=== PATIENT | male | born 1970 | race Caucasian/White ===

== ENCOUNTER 2018-07-26 23:55 | Emergency (ER) | payer OTHER ==
[~2018-07-26] VITALS: Ht 175.3 cm; Wt 83.9 kg
[2018-07-27] MEDS ORDERED: FLUOXETINE HCL 40 MG (00:03)
--- NOTE | 2018-07-27 00:08 | NUR ---
Patient ambulated with stable gait. AAOX4. Speech is clear, speaks in complete sentences. No neuro deficits noted at this time. Patient came in for c/o dizziness s/p hitting head at the bottom of pool at around 1600 yesterday. Patient was asymptomatic until 1999 where he started feeling nauseous, and dizziness. Denies any vomiting. Denies any pain. Patient stated that now the nausea has subsided, but still feels minimal dizziness. PERRLA. Respiratory even and unlabored, no cough no sob. No cardiovascular distress noted. No distress. Patient in bed at lowest position, siderails upx2, call light within reach. Fall precautions implemented per protocol. Lights dimmed in room.
--- NOTE | 2018-07-27 00:38 | NUR ---
ERMD at bedside for MSE
--- NOTE | 2018-07-27 00:51 | NUR ---
Patient transported to CT via w/c. In stable condition.
--- NOTE | 2018-07-27 01:35 | NUR ---
Patient discharged to home in stable conditon. Written and verbal after care instructions given. Patient verbalizes understanding of instructions. Patient ambulated with stable gait.
[2018-07-27 01:36] VITALS: BP 140/82
== END 2018-07-27 01:37 | disposition home or self-care (01) ==
LOC: ER 23:58
DX: S06.0X0A Concussion without loss of consciousness, initial encounter (principal); Z79.899 Other long term (current) drug therapy; W22.8XXA Striking against or struck by other objects, initial encounter; Y93.89 Activity, other specified; Y92.89 Other specified places as the place of occurrence of the external cause; Y99.8 Other external cause status
CPT/HCPCS: 70450; A4663